=== PATIENT | male | born 1990 | race African-American/Black ===

== ENCOUNTER 2016-11-29 08:39 | Emergency (ER) | payer OTHER ==
[2016-11-29 08:47] VITALS: PULSE 68
[2016-11-29] MEDS ORDERED: SODIUM CHLORIDE 0.9% 1,000 ML IV STA (08:57)
[2016-11-29] MEDS ORDERED: RX INFO: IV CONTRAST WAS GIVEN 1 EACH MISC MISCELLANE PRN (08:57)
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
[2016-11-29 09:33] LABS: Basophils % (A) 0 %; CH 24.2; CHCM 31.9; Eosinophils % (A) 1 %; HCT 38.7 % (39.0-53.0); HGB 12.3 gm/dL (13.0-17.5); Hypochromasia Slight; Luc # (Auto) 0.13; Luc % (Auto) 3; Lymphocytes # (A) 1.6 k/uL (1.0-4.8); Lymphocytes % (A) 32 %; MCH 24.3 pg (25.0-35.0); MCHC 31.7 g/dL (31.0-37.0); MCV 76.7 fL (80.0-100.0); Mean Platelet Volume 6.1; Microcytosis Slight; Monocytes # (A) 0.3 k/uL (0-1.0); Monocytes % (A) 5 %; Neutrophils # (A) 3.1 k/uL (1.3-7.7); Neutrophils % (A) 60 %; RBC 5.05 m/uL (4.30-5.90); RDW 15.9 % (11.5-15.5); WBC 5.2 k/uL (3.8-10.6); WBC (Perox) 5.27
[2016-11-29 09:34] LABS: ALT 43 U/L (21-72); AST 32 U/L (17-59); Alkaline Phosphatase 68 U/L (38-126); Anion Gap 11 mmol/L; Blood Urea Nitrogen 14 mg/dL (9-20); Calcium 9.7 mg/dL (8.4-10.2); Carbon Dioxide 25 mmol/L (22-30); Chloride 106 mmol/L (98-107); Glucose 110 mg/dL (74-99); INR 1.1 (<1.1); Non-African American GFR(MDRD) >60 (>60 ml/min/1.73 sqM); Partial Thromboplastin Time 25.5 sec (22.0-30.0); Potassium 4.4 mmol/L (3.5-5.1); Sodium 142 mmol/L (137-145); Total Bilirubin 0.3 mg/dL (0.2-1.3)
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
[2016-11-29 11:09] VITALS: BP 121/58; RESP 19; TEMP 97.3
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
--- NOTE | 2016-11-29 11:39 | XR ---
EXAMINATION TYPE: XR shoulder complete RT DATE OF EXAM: 11/29/2016 COMPARISON: NONE HISTORY: Pain TECHNIQUE: 4 views FINDINGS: There is no sign of fracture nor dislocation. Joint spaces are normal. There are no patholo gic calcifications. IMPRESSION: Negative right shoulder exam.
--- NOTE | 2016-11-29 11:39 | XR ---
EXAMINATION TYPE: XR knee complete RT DATE OF EXAM: 11/29/2016 COMPARISON: NONE HISTORY: Pain TECHNIQUE: 3 views FINDINGS: There is no sign of fracture nor dislocation. Joint spaces are normal. There is no sign of joint effusion. IMPRESSION: Negative right knee exam.
[2016-11-29] MEDS ORDERED: ORPHENADRINE 30 MG/ML 2 ML VIAL IVP STA (11:44)
[2016-11-29] MEDS ORDERED: KETOROLAC 30 MG/ML 1 ML VIAL IVP STA (11:44)
== END 2016-11-29 11:52 | disposition home or self-care (01) ==
LOC: EC 08:39
DX: S46.911A Strain of unspecified muscle, fascia and tendon at shoulder and upper arm level, right arm, initial encounter (principal); S16.1XXA Strain of muscle, fascia and tendon at neck level, initial encounter; S83.91XA Sprain of unspecified site of right knee, initial encounter; S60.221A Contusion of right hand, initial encounter; R51 Headache; R10.9 Unspecified abdominal pain; Z91.018 Allergy to other foods; V87.8XXA Person injured in other specified noncollision transport accidents involving motor vehicle (traffic), initial encounter; Y92.410 Unspecified street and highway as the place of occurrence of the external cause
CPT/HCPCS: 36415; 80053; 85025; 85610; 85730; 73030; 73130; 73562; 72125; 70450; 74177; 99284; 96374; 96375; 96361 ×3; J2360; J1885; Q9967

== ENCOUNTER → 2020-03-18 | Outpatient (CLI) | payer OTHER | END | disposition home or self-care (01) | LOC: LABWHC1 13:53 | PROVIDERS: ATTEND Family Medicine | DX: Z20.828 Contact with and (suspected) exposure to other viral communicable diseases (principal) | CPT/HCPCS: U0003; C9803 ==

== ENCOUNTER 2021-06-02 19:40 | Emergency (ER) | payer OTHER ==
[2021-06-02 21:05] VITALS: RESP 20
--- NOTE | 2021-06-02 21:36 | ED ---
General Adult HPI - General Chief complaint: Upper Respiratory Infection Stated complaint: Fever, Cough, Body aches Time Seen by Provider: 06/02/21 21:19 Source: patient Mode of arrival: ambulatory Limitations: no limitations - History of Present Illness Initial comments: This 30-year-old male presents to the emergency department with headache, cough, runny nose, diarrhea 3 days. Patient states he was exposed to COVID-19 last week and is here to get tested. States he has intermittent shortness of breath on exertion. He denies any chest pain, visual changes, lightheadedness, dizziness. - Related Data Previous Rx's Medication Instructions Recorded Orphenadrine [Norflex] 100 mg PO Q12H #10 tablet.er 11/29/16 Allergies Allergy/AdvReac Type Severity Reaction Status Date / Time grapefruit Allergy Unknown Verified 06/02/21 21:02 Review of Systems ROS Statement: Those systems with pertinent positive or pertinent negative responses have been documented in the HPI. ROS Other: All systems not noted in ROS Statement are negative. Past Medical History Past Medical History: No Reported History History of Any Multi-Drug Resistant Organisms: None Reported Additional Past Surgical History / Comment(s): benign brain tumor removed 2000 Past Psychological History: No Psychological Hx Reported Smoking Status: Current every day smoker Past Alcohol Use History: Occasional Past Drug Use History: Marijuana General Exam Limitations: no limitations General appearance: alert, in no apparent distress Head exam: Present: atraumatic Eye exam: Present: normal appearance, EOMI. Absent: scleral icterus, conjunctival injection, periorbital swelling ENT exam: Present: normal exam, mucous membranes moist Neck exam: Present: full ROM Respiratory exam: Present: normal lung sounds bilaterally. Absent: respiratory distress, wheezes, rales, rhonchi, stridor Cardiovascular Exam: Present: regular rate, normal rhythm, tachycardia, normal heart sounds. Absent: systolic murmur, diastolic murmur, rubs, gallop, clicks GI/Abdominal exam: Present: soft, normal bowel sounds. Absent: distended, tenderness, guarding, rebound, rigid Extremities exam: Present: full ROM Back exam: Present: normal inspection, full ROM. Absent: tenderness, CVA tenderness (R), CVA tenderness (L) Neurological exam: Present: alert, oriented X3, CN II-XII intact Psychiatric exam: Present: normal affect, normal mood Skin exam: Present: warm, dry, intact, normal color. Absent: rash Course Vital Signs 06/02/21 21:02 Temperature 101.2 F H Pulse Rate 109 H Respiratory 20 Rate Blood Pressure 129/84 O2 Sat by Pulse 98 Oximetry Medical Decision Making - Medical Decision Making This 30-year-old male presents to the emergency department with headache, nause a, runny nose 3 days. Patient tested positive for COVID-19. Patient received COVID-19 antibody infusion without any complications. Chest x-ray: Heart and mediastinum are normal. Lungs are clear. Diaphragm is normal. Bony thorax is normal. Normal chest. Advised patient to get pulse oximeter from [facility] and to return to emergency department if oxygen goes below 90%. Strict return precautions discussed. Patient sent home in stable condition and is agreeable to plan. - Lab Data Lab Results 06/02/21 Range/Units 21:05 Coronavirus (PCR) Detected A (Not Detectd) Disposition Clinical Impression: COVID-19 Disposition: HOME SELF-CARE Condition: Stable Instructions (If sedation given, give patient instructions): Coronavirus Disease 2019 (COVID-19) Additional Instructions: Please return to the emergency department with any new or worsening symptoms. Please follow up with primary care provider next 1-2 days. Advised to get pulse oximeter and to return to emergency department if oxygen drops below 90%. Is patient prescribed a controlled substance at d/c from ED?: No Referrals: Anaid Gomez MD [Primary Care Provider] - 1-2 days Time of Disposition: 23:13
[2021-06-02] MEDS ORDERED: ACETAMINOPHEN TAB 500 MG TAB PO STA (21:37)
[2021-06-02] MEDS ORDERED: SODIUM CHLORIDE 0.9% 1,000 ML IV STA (21:37)
[2021-06-02] MEDS ORDERED: DICYCLOMINE 20 MG TAB PO STA (21:39)
--- NOTE | 2021-06-02 21:53 | XR ---
EXAMINATION TYPE: XR chest 2V DATE OF EXAM: 06/02/2021 COMPARISON: NONE HISTORY: Fever and cough TECHNIQUE: 2 views FINDINGS: Heart and mediastinum are normal. Lungs are clear. Diaphragm is normal. Bony thorax is norm al. IMPRESSION: Normal chest.
[2021-06-02] MEDS ORDERED: BAMLANIVIMAB (EUA) 700 MG, ETESEVIMAB (EUA) 1,400 MG in SODIUM CHLORIDE 0.9% 100 ML IVPB ONE (22:00)
[2021-06-02] MEDS ORDERED: SODIUM CHLORIDE 0.9% 50 ML IVPB ONE (22:00)
[2021-06-03 00:30] VITALS: BP 122/86; PULSE 93; TEMP 99.4
== END 2021-06-03 00:30 | disposition home or self-care (01) ==
LOC: EC 19:40
DX: U07.1 COVID-19 (principal); F17.200 Nicotine dependence, unspecified, uncomplicated; Z91.018 Allergy to other foods
CPT/HCPCS: 87635; 71046; 99284; 96360; J3490

== ENCOUNTER 2023-07-24 17:07 | Emergency (ER) | payer OTHER ==
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
[2023-07-24 17:36] VITALS: TEMP 98.7
--- NOTE | 2023-07-24 17:58 | XR ---
EXAMINATION TYPE: XR chest 2V DATE OF EXAM: 07/24/2023 COMPARISON: 06/02/2021 HISTORY: Chest pain TECHNIQUE: Frontal and lateral views of the chest are obtained. FINDINGS: There is no focal air space opacity, pleural effusion, or pneumothorax seen. The cardiac silhouette size is within normal limits. The osseous structures are intact. IMPRESSION: No acute cardiopulmonary process.
[2023-07-24] MEDS: KETOROLAC 15 MG/ML 1 ML VIAL IVP STA (18:08)
[2023-07-24] MEDS: SODIUM CHLORIDE 0.9% 1,000 ML IV STA (18:08)
--- NOTE | 2023-07-24 18:17 | CT ---
EXAMINATION TYPE: CT brain wo con DATE OF EXAM: 07/24/2023 COMPARISON: 11/29/2016 HISTORY: seizure , history of benign brain tumor in 2000 CT DLP: 1206.9 mGycm. Automated Exposure Control for Dose Reduction was Utilized. TECHNIQUE: CT scan of the head is performed without contrast. FINDINGS The ventricles, basal cisterns and sulci over convexities are within normal limits and there is no ma ss effect or shift of midline structures. There is an area of encephalomalacia involving the left cerebellar hemisphere which was seen previous ly and is stable and is consistent with the history of benign tumor resection. There is no acute intra or extra-axial hemorrhage. Intraorbital contents appear normal with symmetric. Visualized paranasal sinuses and mastoid air cells are well aerated and there is a craniotomy defect in the left occipital bone otherwise the calvarium is intact. IMPRESSION: 1. No acute bleed or mass effect. 2. Postsurgical changes in the posterior fossa on the left as described above. 3. No interval change compared to previous.
[2023-07-24 18:18] LABS: Basophils % (A) 0 %; Eosinophils # (A) 0.2 k/uL (0-0.7); Eosinophils % (A) 3 %; HGB 13.1 gm/dL (13.0-17.5); Hypochromasia Slight; Lymphocytes # (A) 2.6 k/uL (1.0-4.8); Lymphocytes % (A) 40 %; MCH 24.9 pg (25.0-35.0); MCHC 31.9 g/dL (31.0-37.0); MCV 78.1 fL (80.0-100.0); Mean Platelet Volume 7.3; Microcytosis Slight; Monocytes # (A) 0.3 k/uL (0-1.0); Monocytes % (A) 5 %; Neutrophils # (A) 3.3 k/uL (1.3-7.7); Neutrophils % (A) 51 %; Platelet Count 269 k/uL (150-450); RBC 5.25 m/uL (4.30-5.90); RDW 15.8 % (11.5-15.5); WBC 6.6 k/uL (3.8-10.6)
--- NOTE | 2023-07-24 18:18 | XR ---
Left shoulder. HISTORY: Pain following seizure. COMPARISON: None. TECHNIQUE: 3 views of the left shoulder were obtained. FINDINGS: There is no fracture, dislocation, interosseous, intra-articular or soft tissue abnormality. IMPRESSION: No significant abnormality seen.
[2023-07-24 18:26] LABS: ALT 21 U/L (4-49); AST 31 U/L (17-59); African American GFR (CKD) >90 (>60 ml/min/1.73 sqM); Albumin 4.3 g/dL (3.5-5.0); Alkaline Phosphatase 67 U/L (38-126); Anion Gap 7 mmol/L; Blood Urea Nitrogen 17 mg/dL (9-20); Calcium 9.6 mg/dL (8.4-10.2); Carbon Dioxide 25 mmol/L (22-30); Chloride 107 mmol/L (98-107); Glucose 95 mg/dL (74-99); Magnesium 1.9 mg/dL (1.6-2.3); Non-African American GFR(CKD) >90 (>60 ml/min/1.73 sqM); Potassium 4.1 mmol/L (3.5-5.1); Sodium 139 mmol/L (137-145); Total Bilirubin 0.4 mg/dL (0.2-1.3); Total Protein 6.9 g/dL (6.3-8.2)
[2023-07-24 19:27] VITALS: BP 126/84; PULSE 61; RESP 18
== END 2023-07-24 19:24 | disposition home or self-care (01) ==
LOC: EC 17:07
DX: G40.409 Other generalized epilepsy and epileptic syndromes, not intractable, without status epilepticus (principal); R00.1 Bradycardia, unspecified; B95.61 Methicillin susceptible Staphylococcus aureus infection as the cause of diseases classified elsewhere; B95.0 Streptococcus, group A, as the cause of diseases classified elsewhere; F17.200 Nicotine dependence, unspecified, uncomplicated; F12.90 Cannabis use, unspecified, uncomplicated; Z20.822 Contact with and (suspected) exposure to COVID-19; Z91.018 Allergy to other foods
CPT/HCPCS: 36415; 93005; 80053; 83605; 83735; 84484; 85025; 87636; 73030; 71046; 70450; 99285; 96374; 96361; J1885